=== PATIENT | male | born 1995 ===

== ENCOUNTER 2017-05-10 10:57 | Emergency (ER) | payer OTHER ==
[2017-05-10 11:11] VITALS: BP 120/66
[2017-05-10] MEDS ORDERED: Fluorescein Sodium TOPICAL* 1 MG TEST OPHTHALMIC ONE (11:26)
--- NOTE | 2017-05-10 11:44 | UC ---
Eye Complaint HPI - HPI Summary HPI Summary: 21 yo male awoke this AM with left eye pain and redness tearing but no purulent d/c contact lens user - History of Current Complaint Chief Complaint: UCEye Stated Complaint: EYE ISSUE Time Seen by Provider: 05/10/17 11:16 Hx Obtained From: Patient Onset/Duration: Gradual Onset, Lasting Hours Timing: Constant Severity Initially: Mild Severity Currently: Mild Pain Intensity: 4 Pain Scale Used: 0-10 Numeric Location of Injury: Conjunctiva Character: Dull Aggravating Factor(s): Light Alleviating Factor(s): Nothing Associated Signs And Symptoms: Positive: Photophobia - mild, Drainage (Clear) - Risk Factors Penetrating Injury Risk Factor: Negative Globe Rupture Risk Factors: Negative Acute Glaucoma Risk Factors: Negative Optic Artery Occlusion Risk Factors: Negative - Allergies/Home Medications Allergies/Adverse Reactions: Allergies Allergy/AdvReac Type Severity Reaction Status Date / Time No Known Allergies Allergy Verified 05/10/17 11:11 PMH/Surg Hx/FS Hx/Imm Hx Previously Healthy: Yes - Surgical History Surgical History: None - Family History Known Family History: Positive: Hypertension - Social History Alcohol Use: None Substance Use Type: None Smoking Status (MU): Never Smoked Tobacco Review of Systems Constitutional: Negative Skin: Negative Eyes: Eye Redness, Photophobia ENT: Negative Respiratory: Negative Cardiovascular: Negative Gastrointestinal: Negative Genitourinary: Negative Motor: Negative Neurovascular: Negative Musculoskeletal: Negative Neurological: Negative Psychological: Negative Is Patient Immunocompromised?: No All Other Systems Reviewed And Are Negative: Yes Physical Exam Triage Information Reviewed: Yes Appearance: Well-Appearing, No Pain Distress, Well-Nourished Vital Signs: Initial Vital Signs Temp 98.5 F 05/10/17 11:08 Pulse 89 05/10/17 11:08 Resp 16 05/10/17 11:08 BP 120/66 05/10/17 11:08 Pulse Ox 99 05/10/17 11:08 Eyes: Positive: Conjunctiva Inflamed, Other: - (-) flourescein staining defect/ no fb noted ENT: Positive: Hearing grossly normal, TMs normal. Negative: Nasal congestion, Nasal drainage, Tonsillar exudate, Trismus, Muffled/hoarse voice Dental Exam: Normal Neck: Positive: Supple, Nontender Respiratory: Positive: Lungs clear, Normal breath sounds, No respiratory distress, No accessory muscle use Cardiovascular: Positive: RRR Musculoskeletal: Positive: ROM Intact, No Edema Neurological: Positive: Alert Psychological Exam: Normal Psychological: Positive: Normal Response To Family Skin Exam: Normal Eye Complaint Course/Dx - Differential Dx/Diagnosis Provider Diagnoses: lef teye pain and redness of uncertain cause Discharge - Discharge Plan Condition: Stable Disposition: HOME Prescriptions: Polymyx/Trimethoprim OPTH* [Polytrim OPHTH*] 1 - 2 drop LEFT EYE QID #1 btl Patient Education Materials: Eye Pain (ED) Referrals: Adriel Storey MD [Medical Doctor] - 1 Day (if not better) Additional Instructions: I saw no scratch or corneal ulcer no contacts for at least a week I suggest you see an eye doctor tomorrow unless completely better
== END 2017-05-10 11:51 | disposition home or self-care (01) ==
LOC: UCEAST 10:57
DX: H57.12 Ocular pain, left eye (principal); H57.8 Other specified disorders of eye and adnexa
CPT/HCPCS: 99202; A9270-GY; G0463